=== PATIENT | female | born 1945 | race Caucasian/White ===

== ENCOUNTER 2020-06-24 08:30 | Day surgery (SDC) | payer MEDICARE, OTHER, SELFPAY ==
[2020-06-18 10:20] VITALS: BMI 29.0
--- NOTE | 2020-06-19 16:47 | P.HPSUR_ITS ---
Pre-Procedural Eval Section A The patient is an INPATIENT: No The History & Physical has been completed within 30 days and I have reviewed it.: Yes Section B Chief Complaint: Right Eye Cataract Allergies: Allergies Allergy/AdvReac Type Severity Reaction Status Date / Time dulaglutide [From [facility]] Allergy Unknown Verified 06/18/20 10:25 metformin Allergy Unknown Verified 06/18/20 10:25 Plan Diagnosis/Plan: Unchanged I have reviewed the history and physical and performed a pertinent physical examination on my patient. No changes have occurred unless specified.
--- NOTE | 2020-06-21 09:41 | P.CONAN_ITS ---
Documented by User: Nataliia Alyson 06/21/20 09:41 HPI - Anesthesia Eval Consult details Narrative: 74yo F for Right Cataract Extraction IOL Insertion PCP cleared No prev cataract on record PMFSH Past Medical History Medical History Arthritis Chronic renal insufficiency COVID-19 vaccine administered Diabetes Elevated cholesterol HTN (hypertension) Hx of melanoma of skin Surgical History Surgical History History of total left hip arthroplasty Hx of melanoma excision Social History Social History Smoking Status: Never smoker Use of substances other than those prescribed or required for medical reasons: No Advance Directives Information Provided: No Recently lost weight without trying: No Eating poorly because of decreased appetite: No Nutrition Risks: No Nutritional Risk Meds Allergies Allergy/AdvReac Type Severity Reaction Status Date / Time dulaglutide [From [facility]] Allergy Unknown Verified 06/18/20 10:25 metformin Allergy Unknown Verified 06/18/20 10:25 Home Medications Medication Instructions Recorded Confirmed Last Taken Type allopurinol 1 tab PO DAILY 06/18/20 06/18/20 Unknown History amlodipine-benazepril 1 cap PO DAILY 06/18/20 06/18/20 Unknown History aspirin [Aspirin Low-Strength] 81 mg PO DAILY 06/18/20 06/18/20 Unknown History glipizide 5 mg PO BEDTIME 06/18/20 06/18/20 Unknown History glipizide 10 mg PO QAM 06/18/20 06/18/20 Unknown History insulin glargine [Basaglar KwikPen 50 unit SUBCUT QPM 06/18/20 06/18/20 Unknown History U-100 Insulin] metoprolol tartrate 1 tab PO DAILY 06/18/20 06/18/20 06/24/20 History simvastatin 1 tab PO QPM 06/18/20 06/18/20 Unknown History spironolacton-hydrochlorothiaz 0.5 tab PO DAILY 06/18/20 06/18/20 Unknown History Exam Exam Date and Time: June 21, 2020 0941 Height,Weight and Vital Signs: Height 5 ft 4 in Weight 76.657 kg Assessment and Plan Assessment Anesthesia Assessment: Chart Reviewed Documented by User: Romi Verma 06/24/20 10:19 PMFSH Past Medical History Medical History Arthritis Chronic renal insufficiency COVID-19 vaccine administered Diabetes Elevated cholesterol HTN (hypertension) Hx of melanoma of skin Surgical History Surgical History History of total left hip arthroplasty Hx of melanoma excision Social History Social History Smoking Status: Never smoker Use of substances other than those prescribed or required for medical reasons: No Advance Directives Information Provided: No Recently lost weight without trying: No Eating poorly because of decreased appetite: No Nutrition Risks: No Nutritional Risk Meds Allergies Allergy/AdvReac Type Severity Reaction Status Date / Time dulaglutide [From [facility]] Allergy Unknown Verified 06/18/20 10:25 metformin Allergy Unknown Verified 06/18/20 10:25 Home Medications Medication Instructions Recorded Confirmed Last Taken Type allopurinol 1 tab PO DAILY 06/18/20 06/18/20 Unknown History amlodipine-benazepril 1 cap PO DAILY 06/18/20 06/18/20 Unknown History aspirin [Aspirin Low-Strength] 81 mg PO DAILY 06/18/20 06/18/20 Unknown History glipizide 5 mg PO BEDTIME 06/18/20 06/18/20 Unknown History glipizide 10 mg PO QAM 06/18/20 06/18/20 Unknown History insulin glargine [Basaglar KwikPen 50 unit SUBCUT QPM 06/18/20 06/18/20 Unknown History U-100 Insulin] metoprolol tartrate 1 tab PO DAILY 06/18/20 06/18/20 06/24/20 History simvastatin 1 tab PO QPM 06/18/20 06/18/20 Unknown History spironolacton-hydrochlorothiaz 0.5 tab PO DAILY 06/18/20 06/18/20 Unknown History Exam Airway Mallampati Class: II TM Dist: >3cm Neck ROM: Full Heart: RRR Lungs: CTA
[2020-06-24 09:32] VITALS: BP 140/76; PULSE 54; RESP 18; TEMP 36.1; O2SAT 97
[2020-06-24] MEDS: Phenylephrine HCL 2.5% Oph SoL 2 ML BOTTLE 1 DROP EYE-RIGHT ×3 (09:39→09:41)
[2020-06-24] MEDS: Tetracaine HCl/PF 0.5% Oph Sol 4 ML DROPS 1 DROP EYE-RIGHT (09:39)
[2020-06-24] MEDS: Tropicamide 1 % Ophth Sol 3 ML BTL 1 DROP EYE-RIGHT ×3 (09:39→09:41)
[2020-06-24 09:41] LABS: Glucose, Whole Blood 200 mg/dL (60-115)
--- NOTE | 2020-06-24 09:42 | PC.NURSE ---
pt verbalized understanding of d/c
[2020-06-24] MEDS: Lactated Ringers 500 ML 50 ML IV (09:49)
--- NOTE | 2020-06-24 10:44 | HO.PNOPHT ---
Ophthalmology Procedure Procedure Date of Service: 06/24/20 Ophthalmology Viscoelastic: Healon Duet Dual Pack Pro Ophthalmology Lenses: TECNIS [id number] (23.5) Procedure Notes: PREOPERATIVE DIAGNOSIS: Decreased visual acuity right eye secondary to cataract POSTOPERATIVE DIAGNOSIS: Same PROCEDURE: Right cataract extraction with intraocular lens insertion SURGEON: Anthony Tejada M.D. ANESTHESIA: Topical/MAC ESTIMATED BLOOD LOSS: None COMPLICATIONS: None After obtaining informed consent, the patient was brought to the operating room suite and placed in the supine position. After adequate sedation per anesthesia, topical drops of Tetracaine were given to the right eye. The eye was then prepped and draped in the usual sterile fashion. The operating room microscope was then positioned over the operative eye and a lid speculum placed. A paracentesis was created. Viscoelastic was then instilled into the anterior chamber. A three plane incision was then created temporally, utilizing a 2.85 mm keratome. Capsulotomy forceps were then utilized to create a circular tear capsulotomy. Hydrodissection and hydrodelineation were carried out until adequate mobilization of the nucleus occurred. Phacoemulsification was then utilized to remove the dense central nucleus followed by removal of the cortical material utilizing the automated aspiration irrigation unit. Viscoelastic was instilled into the posterior capsular bag followed by placement of a posterior chamber intraocular lens without difficulty. The residual Viscoelastic was then removed utilizing the automated IA machine. The wound was checked and found to be watertight. The patient tolerated the procedure well and the lid speculum was removed. Intracameral injection of Vigamox 0.1 mL followed by a subtenon injection of Kenalog-40 0.2 mL were administered. The patient will be seen in the a.m.
[2020-06-24 11:05] VITALS: BP 146/77; PULSE 62; RESP 16; TEMP 36.3; O2SAT 99
--- NOTE | 2020-06-24 12:58 | HO.POSTANES ---
Post Anesthesia Evaluation Post Anesthesia Evaluation Vital Signs: Vital Signs Temp Pulse Resp BP Pulse Ox 06/24/20 11:05 97.3 F 62 16 146/77 H 99 06/24/20 09:32 97 F 54 18 140/76 H 97 Anesthesia: TIVA Mental Status: Awake Pain Control: Satisfactory Nausea/Vomiting: None Hydration: Adequate Anesthesia-Related Issues: No Anes. Related Issues
== END 2020-06-24 10:00 | disposition home or self-care (01) ==
PROVIDERS: PCP Internal Medicine; Visit Provider Ophthalmology
PROC: (CPT 66985; principal; 2020-06-24 11:10)
DX: H25.11 Age-related nuclear cataract, right eye (principal); H52.4 Presbyopia; E11.22 Type 2 diabetes mellitus with diabetic chronic kidney disease; I12.9 Hypertensive chronic kidney disease with stage 1 through stage 4 chronic kidney disease, or unspecified chronic kidney disease; N18.9 Chronic kidney disease, unspecified; Z79.4 Long term (current) use of insulin; Z79.899 Other long term (current) drug therapy; Z79.82 Long term (current) use of aspirin; Z88.8 Allergy status to other drugs, medicaments and biological substances
CPT/HCPCS: 66984; 82947; J2250; J3300; V2632

== ENCOUNTER 2020-07-08 07:06 | Day surgery (SDC) | payer MEDICARE, OTHER, SELFPAY ==
[2020-06-18 10:28] VITALS: BMI 29.0
--- NOTE | 2020-07-04 08:13 | MHC.SHP ---
Pre-Procedural Eval Section A The patient is an INPATIENT: No The History & Physical has been completed within 30 days and I have reviewed it.: Yes Section B Chief Complaint: Left Eye cataract Allergies: Allergies Allergy/AdvReac Type Severity Reaction Status Date / Time dulaglutide [From [facility]] Allergy Unknown Verified 06/18/20 10:25 metformin Allergy Unknown Verified 06/18/20 10:25 Plan Diagnosis/Plan: Unchanged I have reviewed the history and physical and performed a pertinent physical examination on my patient. No changes have occurred unless specified.
--- NOTE | 2020-07-05 08:35 | P.CONAN_ITS ---
Documented by User: Nataliia Alyson 07/05/20 08:36 HPI - Anesthesia Eval Consult details Narrative: 74yo F for Left Cataract Extraction IOL Insertion PCP cleared Right eye done 06/24/20: Midaz 2 PMFSH Past Medical History Medical History Arthritis Chronic renal insufficiency COVID-19 vaccine administered Diabetes Elevated cholesterol HTN (hypertension) Hx of melanoma of skin Surgical History Surgical History History of total left hip arthroplasty Hx of melanoma excision Social History Social History Smoking Status: Never smoker Use of substances other than those prescribed or required for medical reasons: No Are you DNR?: No Advance Directives Information Provided: No Recently lost weight without trying: No Eating poorly because of decreased appetite: No Nutrition Risks: No Nutritional Risk Meds Allergies Allergy/AdvReac Type Severity Reaction Status Date / Time dulaglutide [From [facility]] Allergy Severe Diarrhea Verified 07/08/20 07:54 metformin Allergy Severe Diarrhea Verified 07/08/20 07:54 Home Medications Medication Instructions Recorded Confirmed Last Taken Type allopurinol 1 tab PO DAILY 06/18/20 06/18/20 Unknown History amlodipine-benazepril 1 cap PO DAILY 06/18/20 06/18/20 Unknown History aspirin [Aspirin Low-Strength] 81 mg PO DAILY 06/18/20 06/18/20 07/07/20 08:00 History glipizide 5 mg PO BEDTIME 06/18/20 06/18/20 Unknown History glipizide 10 mg PO QAM 06/18/20 06/18/20 Unknown History insulin glargine [Basaglar KwikPen 50 unit SUBCUT QPM 06/18/20 06/18/20 Unknown History U-100 Insulin] metoprolol tartrate 1 tab PO DAILY 06/18/20 06/18/20 07/08/20 05:45 History simvastatin 1 tab PO QPM 06/18/20 06/18/20 Unknown History spironolacton-hydrochlorothiaz 0.5 tab PO DAILY 06/18/20 06/18/20 Unknown History Exam Exam Date and Time: July 05, 2020 0835 Height,Weight and Vital Signs: Height 5 ft 4 in Weight 76.657 kg Assessment and Plan Assessment Anesthesia Assessment: Chart Reviewed Documented by User: Denise Montes 07/08/20 08:04 [facility] Past Medical History Medical History Arthritis Chronic renal insufficiency COVID-19 vaccine administered Diabetes Elevated cholesterol HTN (hypertension) Hx of melanoma of skin Surgical History Surgical History History of total left hip arthroplasty Hx of melanoma excision Social History Social History Smoking Status: Never smoker Use of substances other than those prescribed or required for medical reasons: No Are you DNR?: No Advance Directives Information Provided: No Recently lost weight without trying: No Eating poorly because of decreased appetite: No Nutrition Risks: No Nutritional Risk Meds Allergies Allergy/AdvReac Type Severity Reaction Status Date / Time dulaglutide [From [facility]] Allergy Severe Diarrhea Verified 07/08/20 07:54 metformin Allergy Severe Diarrhea Verified 07/08/20 07:54 Home Medications Medication Instructions Recorded Confirmed Last Taken Type allopurinol 1 tab PO DAILY 06/18/20 06/18/20 Unknown History amlodipine-benazepril 1 cap PO DAILY 06/18/20 06/18/20 Unknown History aspirin [Aspirin Low-Strength] 81 mg PO DAILY 06/18/20 06/18/20 07/07/20 08:00 History glipizide 5 mg PO BEDTIME 06/18/20 06/18/20 Unknown History glipizide 10 mg PO QAM 06/18/20 06/18/20 Unknown History insulin glargine [Basaglar KwikPen 50 unit SUBCUT QPM 06/18/20 06/18/20 Unknown History U-100 Insulin] metoprolol tartrate 1 tab PO DAILY 06/18/20 06/18/20 07/08/20 05:45 History simvastatin 1 tab PO QPM 06/18/20 06/18/20 Unknown History spironolacton-hydrochlorothiaz 0.5 tab PO DAILY 06/18/20 06/18/20 Unknown History Exam Airway Mallampati Class: II TM Dist: >3cm Neck ROM: Full Loose/Missing/Broken Teeth: No Heart: RRR Lungs: CTA Assessment and Plan Assessment Anesthesia Assessment: Anesthesia Plan Discussed and Chart Reviewed Final Anesthetic Review NPO: Yes ASA Class: II Final Preanesthetic Review: Meds/Allgs Chart Reviewed, Consent Obtained/Reviewed and Anes Risks/Benef Reviewed Patient Risk: Low Procedure Risk: Low Anesthetic Plan Anesthetic Plan: MAC: Disposition: Standard PACU
[2020-07-08 07:51] VITALS: BP 147/58; PULSE 55; RESP 18; TEMP 36.3; O2SAT 99
[2020-07-08 08:01] LABS: Glucose, Whole Blood 186 mg/dL (60-115)
[2020-07-08] MEDS: Tetracaine HCl/PF 0.5% Oph Sol 4 ML DROPS 1 DROP EYE-LEFT (08:05)
[2020-07-08] MEDS: Lactated Ringers 500 ML 50 ML IV (08:05)
[2020-07-08] MEDS: Tropicamide 1 % Ophth Sol 3 ML BTL 1 DROP EYE-LEFT ×3 (08:08→08:15)
[2020-07-08] MEDS: Phenylephrine HCL 2.5% Oph SoL 2 ML BOTTLE 1 DROP EYE-LEFT ×3 (08:10→08:19)
--- NOTE | 2020-07-08 08:38 | HO.PNOPHT ---
Ophthalmology Procedure Procedure Date of Service: 07/08/20 Ophthalmology Viscoelastic: Healon Duet Dual Pack Pro Ophthalmology Lenses: TECCOLTON [id number] (24) Procedure Notes: PREOPERATIVE DIAGNOSIS: Decreased visual acuity left eye secondary to cataract POSTOPERATIVE DIAGNOSIS: Same PROCEDURE: Left cataract extraction with intraocular lens insertion SURGEON: Anthony Tejada M.D. ANESTHESIA: Topical/MAC ESTIMATED BLOOD LOSS: None COMPLICATIONS: None After obtaining informed consent, the patient was brought to the operation room suite and placed in the supine position. After adequate sedation per anesthesia, topical drops of Tetracaine were given to the left eye. The eye was then prepped and draped in the usual sterile fashion. The operating room microscope was then positioned over the operative eye and a lid speculum placed. A paracentesis was created. Viscoelastic was then instilled into the anterior chamber. A three plane incision was then created temporally, utilizing a 2.85 mm keratome. Capsulotomy forceps were then utilized to create a circular tear capsulotomy. Hydrodissection and hydrodelineation were carried out until adequate mobilization of the nucleus occurred. Phacoemulsification was then utilized to remove the dense central nucleus followed by removal of the cortical material utilizing the automated aspiration irrigation unit. Viscoat elastic was instilled into the posterior capsular bag followed by placement of a posterior chamber intraocular lens without difficulty. The residual Viscoat elastic was then removed utilizing the automated IA machine. The wound was check and found to be watertight. The patient tolerated the procedure well and the lid speculum was removed. Intracameral injection of Vigamox 0.1 mL followed by a subtenon injection of Kenalog-40 0.2 mL were administered. The patient will be seen in the a.m.
[2020-07-08 09:08] VITALS: BP 118/62; PULSE 55; RESP 16; TEMP 36.3; O2SAT 99
== END 2020-07-08 09:10 | disposition home or self-care (01) ==
PROVIDERS: PCP Internal Medicine; Visit Provider Ophthalmology
PROC: (CPT 66985; principal; 2020-07-08 08:50)
DX: H25.12 Age-related nuclear cataract, left eye (principal); H52.4 Presbyopia; Z83.511 Family history of glaucoma; N18.9 Chronic kidney disease, unspecified; E11.22 Type 2 diabetes mellitus with diabetic chronic kidney disease; I12.9 Hypertensive chronic kidney disease with stage 1 through stage 4 chronic kidney disease, or unspecified chronic kidney disease; Z79.4 Long term (current) use of insulin; Z79.899 Other long term (current) drug therapy; Z79.82 Long term (current) use of aspirin; Z85.820 Personal history of malignant melanoma of skin
CPT/HCPCS: 66984; 82947; J2250; J3300; V2632